=== PATIENT | male | born 1965 | race Caucasian/White ===

== ENCOUNTER 2016-04-19 06:26 | Day surgery (SDC) | payer OTHER ==
[~2016-04-19] VITALS: Ht 177.8 cm; Wt 93.0 kg
[~2016-04-19 06:26] MED LIST: ASPIR 8181 M1 PO; CIPRO500 MG PO; DIOVAN80 MG PO; LEVAQUIN250 MG PO; PROBIOTIC1 EAC3 PO
[2016-04-19 07:07] VITALS: BP 131/74
[2016-04-19 08:20] LABS: METH RESISTANT S AUREUS PCR NEGATIVE (NEGATIVE); PROBE CHECK PASS; SPECIMEN PROCESSING CONTROL PASS
[2016-04-19 09:50] VITALS: BP 114/74
[2016-04-19 10:58] VITALS: BP 124/72
== END 2016-04-19 10:58 | disposition home or self-care (01) ==
LOC: SDC 06:26
PROVIDERS: Urology
DX: N20.1 Calculus of ureter (principal); I10 Essential (primary) hypertension
CPT/HCPCS: 82365 90; 87641; 93005; C1876; J1100; J1335; J2250; J2405; J2765; J3010; J7050